=== PATIENT | male | born 1965 | race Caucasian/White ===

== ENCOUNTER 2021-08-28 03:05 | Emergency (ER) | payer BC ==
[2021-08-28 04:02] LABS: RED BLOOD COUNT 5.09 M/UL (4.20-5.50); WHITE BLOOD COUNT 4.5 K/UL (4.5-11.0)
[2021-08-28 04:35] LABS: BUN/CREATININE RATIO 17 (0-10)
== END 2021-08-28 07:50 | disposition home or self-care (01) ==
LOC: ER1 03:05
PROVIDERS: Physician Assistant
DX: U07.1 COVID-19 (principal); M54.6 Pain in thoracic spine
CPT/HCPCS: 71045; 80053; 82550; 82553; 83874; 83880; 84484; 85025; 85379; 85610; 85730; 93005; 99284; Q9967